=== PATIENT | male | born 1995 | race African-American/Black ===

== ENCOUNTER 2016-11-04 18:58 | Emergency (ER) | payer OTHER ==
[~2016-11-04] VITALS: Ht 177.8 cm; Wt 65.0 kg
[2016-11-04 19:02] VITALS: BP 121/52; PULSE 76; RESP 16; TEMP 100.9; O2SAT 98
[2016-11-04] MEDS ORDERED: ONDANSETRON ODT 4 MG TAB PO ONE (21:15)
[2016-11-04] MEDS ORDERED: IBUPROFEN 800 MG TAB PO ONE (21:15)
--- NOTE | 2016-11-04 21:18 | PD ---
HPI Chief Complaint: Cold / Flu Symptoms Time Seen by Provider: 21:15 Travel History International Travel<30 days: No Contact w/Intl Traveler<30days: No Traveled to known affect area: No History of Present Illness HPI Patient comes in complaining of flulike symptoms that began last night. Patient complaining of cough, fevers, nausea, congestion, body aches, feeling rundown, and chills. Patient denies taking anything for this. Denies being around anyone else with similar. Denies any vomiting, diarrhea, shortness of breath, abdominal pain, or headaches. Denies anything making it better or worse. PFSH Past Medical History Medical History: Denies Significant Hx Immunizations Current: Yes Tetanus Vaccination: Unknown Influenza Vaccination: No Social History Alcohol Use: Yes (socially) Tobacco Use: Yes Substance Use: No Allergies-Medications (Allergen,Severity, Reaction): Coded Allergies: No Known Allergies (Unverified , 11/04/16) Reported Meds & Prescriptions Reported Meds & Active Scripts Active Zofran Odt (Ondansetron Odt) 4 Mg Tab 4 Mg SL Q6HR PRN Tamiflu (Oseltamivir Phosphate) 75 Mg Cap 75 Mg PO BID 5 Days Review of Systems Except as stated in HPI: all other systems reviewed are Neg Physical Exam Narrative GENERAL: Well-developed, well nourished, in no acute distress, and non-ill appearing. SKIN: Warm and dry. HEAD: Atraumatic. Normocephalic. EYES: Pupils equal and round. EOMI. No scleral icterus. No injection or drainage. ENT: No nasal bleeding or discharge. Mucous membranes pink and moist. Tympanic membranes pearly dye bilaterally. Posterior Erythematous with Exudate. Uvula Is Midline. No Tenderness to Facial Sinuses to Palpation. NECK: Trachea midline. No JVD. Supple. No nuclear rigidity. CARDIOVASCULAR: Regular rate and rhythm. No murmur appreciated. RESPIRATORY: No accessory muscle use. No respiratory distress. Clear to auscultation. Breath sounds equal bilaterally. GASTROINTESTINAL: Abdomen soft, non-tender, nondistended. Hepatic and splenic margins not palpable. Normal bowel sounds 4. No pulsatile mass. MUSCULOSKELETAL: No obvious deformities. No clubbing. No cyanosis. No edema. Full range of motion. NEUROLOGICAL: Awake and alert. No obvious cranial nerve deficits. Motor grossly within normal limits. Normal speech. PSYCHIATRIC: Appropriate mood and affect; insight and judgment normal. Data Data Last Documented VS Vital Signs Date Time Temp Pulse Resp B/P Pulse Ox O2 Delivery O2 Flow Rate FiO2 11/04/16 19:02 100.9 76 16 121/52 98 Room Air Orders Ondansetron Odt (Zofran Odt) (11/04/16 21:15) Ibuprofen (Motrin) (11/04/16 21:15) MDM Medical Decision Making Medical Screen Exam Complete: Yes Emergency Medical Condition: Yes Differential Diagnosis Influenza, viral syndrome, upper respiratory infection, other Narrative Course Patient looks great. Patients symptom complex is consistent with Influenza, or flu-like illness. The patient is tolerating fluids and is well hydrated. There is no evidence to suggest secondary infection (pneumonia, sepsis/bacteremia, etc.) at this time. I discussed with the patient, diagnosis, and plan of care and to follow up with the patients primary physician. I discussed with the patient regarding testing, even if rapid influenza negative, I would suspect false negative. I discussed with the patient initiating Tamiflu and the patient agreed with plan. The patient was instructed to return if the worsens in anyway , especially if not tolerating fluids, increased pain or swelling, difficulty swallowing or breathing, or as needed. The patient agreed with plan. Patient in no obvious distress upon re-evaluation. Patient was asked if they wanted to speak to my attending, which the patient did not wish to do at this time. Any questions/concerns in reference to patient diagnosis/condition discussed and clarified prior to patient's discharge. Reinforced sheer importance of close follow up with patient's primary physician or primary care clinic. Instructed patient to return to ED immediately, if symptoms return/ worsen. Pt showed understanding of above instructions. Further instructions and recommendations were detailed in discharge paperwork. Pt ambulated without difficulty out of ED at discharge. Diagnosis Primary Impression: Influenza Patient Instructions: General Instructions, Influenza (DC) Additional Instructions: Follow-up with your primary care physician in 3-5 days for reevaluation. Take all medication as prescribed. Use [id number] Tylenol and/or ibuprofen as needed for pain and/or fevers. Follow instructions on the packaging. Drink plenty of non-caffeinated and nonalcoholic fluids. Return to the emergency department if symptoms get worse. Med/Other Pt SpecificInfo: Prescription(s) given Scripts Ondansetron Odt (Zofran Odt)4 Mg Tab4 Mg SL Q6HR PRN (Nausea/Vomiting) #12 TAB Ref 0 Prov:Marya Villagomez MD 11/04/16 Oseltamivir (Tamiflu)75 Mg Cap75 Mg PO BID 5 Days Ref 0 Prov:Marya Villagomez MD 11/04/16 Disposition: 01 DISCHARGE HOME Condition: Stable Steven Henderson Nov 04, 2016 21:18
[2016-11-04] MEDS ORDERED: ZOFR4TAB3 SL (21:23)
[2016-11-04] MEDS ORDERED: OSEL75 PO (21:23)
== END 2016-11-04 21:37 | disposition home or self-care (01) ==
LOC: NEPB 18:58
DX: J11.1 Influenza due to unidentified influenza virus with other respiratory manifestations (principal); R50.9 Fever, unspecified; Z72.0 Tobacco use
CPT/HCPCS: 99283

== ENCOUNTER 2016-11-22 09:53 | Inpatient (IN) | payer OTHER ==
[~2016-11-22] VITALS: Ht 175.3 cm; Wt 90.0 kg
[2016-11-22] VITALS (7 sets, daily range): BP systolic 106–124; BP diastolic 60–75; PULSE 45–86; RESP 14–20; TEMP 97–97.8; O2SAT 96–99
[~2016-11-22 09:53] MED LIST: OSEL75 PO; ZOFR4TAB3 SL
[2016-11-22] MEDS ORDERED: SODIUM CHLOR 0.9% 1000 ML INJ 1,000 ML IV SCH (11:07)
[2016-11-22] MEDS ORDERED: LORazepam 2 MG/ML VIAL IM ONE (11:15)
[2016-11-22] MEDS ORDERED: HALOPERIDOL LACTATE 5 MG/ML AMP IM ONE (11:15)
[2016-11-22] MEDS ORDERED: diphenhydrAMINE HCL 50 MG/ML VIAL IV PUSH ONE (11:15)
[2016-11-22] MEDS ORDERED: SODIUM CHLORIDE 0.9% FLUSH 10 ML FLUSH IVF PRN (11:15)
--- NOTE | 2016-11-22 11:17 | PD ---
HPI Chief Complaint: Altered Mental Status Time Seen by Provider: 10:53 Travel History International Travel<30 days: No Contact w/Intl Traveler<30days: No Traveled to known affect area: No History of Present Illness HPI The patient is a 21-year-old [place] male who presents emergency department with friends and family for altered mental status. Patient apparently went to a libertarian on Friday night and after he returned home he started having an altered mental status and acting in bizarre fashion. A family member states she flew down from [place], states that the current behavior is not normal for the patient. The patient's friend also states that he has had altered mental status, appears to be having contractions and will flex his elbows bilaterally and looked to the left and right in bizarre fashion. The patient has no prior history of illicit drug use according to family or friends , are unsure if he ingested any medications Friday night. They do state the patient stated he might of smoke something, but they are unsure of any ingestion or inhalation of unknown medications. The patient has no previous history of schizophrenia, encephalitis, or meningitis. However, the patient did recently have influenza and was prescribed Tamiflu, which she finished one week ago. Family members state the patient has had Tamiflu in the past without any adverse reactions. The patient is unsure if he has had any fevers, refuses to answer questions or allow me to perform a physical examination. [facility] Past Medical History Medical History: Denies Significant Hx Immunizations Current: Yes Past Surgical History Surgical History: No Previous Surgery Social History Alcohol Use: Yes (socially) Tobacco Use: Yes Substance Use: No Allergies-Medications (Allergen,Severity, Reaction): Coded Allergies: No Known Allergies (Unverified , 11/04/16) Reported Meds & Prescriptions Reported Meds & Active Scripts Active No Active Prescriptions or Reported Medications Review of Systems ROS Limitations: Altered Mental Status, Poor Historian Except as stated in HPI: all other systems reviewed are Neg Neurologic: Positive: Change in Mentation Physical Exam Exam Limitations: Clinical Condition, Altered Mental Status, Refused Narrative GENERAL: Patient was examined post-sedation. Patient responds to voice command and painful stimulant. SKIN: Focused skin assessment warm/dry. HEAD: Atraumatic. Normocephalic. EYES: Pupils equal and round. Pupils are 4 mm bilateral and reactive. ENT: No nasal bleeding or discharge. Mucous membranes pink and moist. NECK: Trachea midline. No JVD. No meningeal signs. CARDIOVASCULAR: Regular rate and rhythm. No murmur appreciated. RESPIRATORY: No accessory muscle use. Clear to auscultation. Breath sounds equal bilaterally. GASTROINTESTINAL: Abdomen soft, non-tender, nondistended. No rebound tenderness. MUSCULOSKELETAL: No obvious deformities. No clubbing. No cyanosis. No edema. NEUROLOGICAL: Sedated from medication. No obvious cranial nerve deficits. Moves all 4 extremities. PSYCHIATRIC: Appears psychotic. Data Data Last Documented VS Vital Signs Date Time Temp Pulse Resp B/P Pulse Ox O2 Delivery O2 Flow Rate FiO2 11/22/16 13:13 54 14 119/65 98 Room Air 11/22/16 09:55 97.8 Orders Electrocardiogram (11/22/16 11:07) Complete Blood Count With Diff (11/22/16 11:07) Comprehensive Metabolic Panel (11/22/16 11:07) Creatine Kinase (Cpk) (11/22/16 11:07) Prothrombin Time / Inr (Pt) (11/22/16 11:07) Act Partial Throm Time (Ptt) (11/22/16 11:07) Thyroid Stimulating Hormone (11/22/16 11:07) Urinalysis - C+S If Indicated (11/22/16 11:07) Chest, Single Ap (11/22/16 11:07) Ct Brain W/O Iv Contrast(Rout) (11/22/16 11:07) Blood Glucose (11/22/16 11:07) Ecg Monitoring (11/22/16 11:07) Iv Access Insert/Monitor (11/22/16 11:07) Oximetry (11/22/16 11:07) Sodium Chloride 0.9% Flush (Ns Flush) (11/22/16 11:15) Sodium Chlor 0.9% 1000 Ml Inj (Ns 1000 M (11/22/16 11:07) Drug Screen, Random Urine (11/22/16 11:07) Alcohol (Ethanol) (11/22/16 11:07) Lorazepam Inj (Ativan Inj) (11/22/16 11:15) Haloperidol Inj (Haldol Inj) (11/22/16 11:15) Diphenhydramine Inj (Benadryl Inj) (11/22/16 11:15) Bacterial Antigen Csf (11/22/16 11:09) Csf Hsv I/Ii Dna,Pcr (11/22/16 11:09) Csf Cell Count + Differential (11/22/16 11:09) Glucose, Csf (11/22/16 11:09) Total Protein, Csf (11/22/16 11:09) Csf Culture And Gram Stain (11/22/16 11:09) Blood Culture (11/22/16 11:09) Labs Laboratory Tests Test 11/22/16 11/22/16 11:59 13:00 White Blood Count 6.4 TH/MM3 Red Blood Count 4.71 MIL/MM3 Hemoglobin 13.4 GM/DL Hematocrit 39.7 % Mean Corpuscular Volume 84.3 FL Mean Corpuscular Hemoglobin 28.5 PG Mean Corpuscular Hemoglobin 33.8 % Concent Red Cell Distribution Width 13.4 % Platelet Count 242 TH/MM3 Mean Platelet Volume 7.4 FL Neutrophils (%) (Auto) 70.6 % Lymphocytes (%) (Auto) 20.7 % Monocytes (%) (Auto) 6.7 % Eosinophils (%) (Auto) 1.6 % Basophils (%) (Auto) 0.4 % Neutrophils # (Auto) 4.5 TH/MM3 Lymphocytes # (Auto) 1.3 TH/MM3 Monocytes # (Auto) 0.4 TH/MM3 Eosinophils # (Auto) 0.1 TH/MM3 Basophils # (Auto) 0.0 TH/MM3 CBC Comment DIFF FINAL Differential Comment Prothrombin Time 13.1 SEC Prothromb Time International 1.2 RATIO Ratio Activated Partial 29.5 SEC Thromboplast Time Sodium Level 141 MEQ/L Potassium Level 3.6 MEQ/L Chloride Level 104 MEQ/L Carbon Dioxide Level 27.4 MEQ/L Anion Gap 10 MEQ/L Blood Urea Nitrogen 22 MG/DL Creatinine 1.19 MG/DL Estimat Glomerular Filtration 94 ML/MIN Rate Random Glucose 88 MG/DL Calcium Level 9.1 MG/DL Total Bilirubin 3.0 MG/DL Aspartate Amino Transf 12 U/L (AST/SGOT) Alanine Aminotransferase 17 U/L (ALT/SGPT) Alkaline Phosphatase 52 U/L Total Creatine Kinase 303 U/L Total Protein 7.5 GM/DL Albumin 4.2 GM/DL Thyroid Stimulating Hormone 0.323 uIU/ML 3rd Gen Ethyl Alcohol Level LESS THAN 3 MG/DL Urine Opiates Screen NEG Urine Barbiturates Screen NEG Urine Amphetamines Screen NEG Urine Benzodiazepines Screen NEG Urine Cocaine Screen NEG Urine Cannabinoids Screen POS MDM Medical Decision Making Medical Screen Exam Complete: Yes Emergency Medical Condition: Yes Medical Record Reviewed: Yes Interpretation(s) Last Impressions Head CT 11/22/16 1107 Signed Impressions: Service Date/Time: Tuesday, November 22, 2016 12:01 - CONCLUSION: Normal examination. Roger Edwards MD Chest X-Ray 11/22/16 1107 Signed Impressions: Service Date/Time: Tuesday, November 22, 2016 11:35 - CONCLUSION: No acute cardiopulmonary abnormality is identified. Feng Lang MD Laboratory Tests Test 11/22/16 11:59 White Blood Count 6.4 TH/MM3 Red Blood Count 4.71 MIL/MM3 Hemoglobin 13.4 GM/DL Hematocrit 39.7 % Mean Corpuscular Volume 84.3 FL Mean Corpuscular Hemoglobin 28.5 PG Mean Corpuscular Hemoglobin 33.8 % Concent Red Cell Distribution Width 13.4 % Platelet Count 242 TH/MM3 Mean Platelet Volume 7.4 FL Neutrophils (%) (Auto) 70.6 % Lymphocytes (%) (Auto) 20.7 % Monocytes (%) (Auto) 6.7 % Eosinophils (%) (Auto) 1.6 % Basophils (%) (Auto) 0.4 % Neutrophils # (Auto) 4.5 TH/MM3 Lymphocytes # (Auto) 1.3 TH/MM3 Monocytes # (Auto) 0.4 TH/MM3 Eosinophils # (Auto) 0.1 TH/MM3 Basophils # (Auto) 0.0 TH/MM3 CBC Comment DIFF FINAL Differential Comment Prothrombin Time 13.1 SEC Prothromb Time International 1.2 RATIO Ratio Activated Partial 29.5 SEC Thromboplast Time Sodium Level 141 MEQ/L Potassium Level 3.6 MEQ/L Chloride Level 104 MEQ/L Carbon Dioxide Level 27.4 MEQ/L Anion Gap 10 MEQ/L Blood Urea Nitrogen 22 MG/DL Creatinine 1.19 MG/DL Estimat Glomerular Filtration 94 ML/MIN Rate Random Glucose 88 MG/DL Calcium Level 9.1 MG/DL Total Bilirubin 3.0 MG/DL Aspartate Amino Transf 12 U/L (AST/SGOT) Alanine Aminotransferase 17 U/L (ALT/SGPT) Alkaline Phosphatase 52 U/L Total Creatine Kinase 303 U/L Total Protein 7.5 GM/DL Albumin 4.2 GM/DL Thyroid Stimulating Hormone 0.323 uIU/ML 3rd Gen Ethyl Alcohol Level LESS THAN 3 MG/DL Differential Diagnosis Differential diagnoses includes encephalitis, meningitis, drug ingestion, electrolyte abnormality, acute psychosis, schizophrenia, rhabdomyolysis, serotonin syndrome, neuroleptic malignant syndrome, frontal lobe tumor. Narrative Course The patient refused physical examination, however, was unable to answer questions in regards to place, month, or year. The patient is not able to sign out against medical field representative, I do not believe the patient can refuse medical care as he is currently altered. I had a discussion with the family member and friend at bedside who agreed the patient should have further evaluation. Therefore, patient was administered Haldol, Benadryl, and Ativan IM for sedation to allow physical examination and probable CT of the brain and lumbar puncture. The patient's white count was normal. The patient was afebrile. CT of the brain is negative. Metabolic workup is unremarkable. The patient is reevaluated after sedation, he is nonfocal on exam, there are no meningeal signs , this may be secondary to drug ingestion versus metabolic/infectious encephalopathy versus new onset schizophrenia. The mother apparently had questions about consenting for possible lumbar puncture, therefore, lumbar puncture was held initially. The on-call medical team was paged for admission. The residents were capped, therefore, [facility] were paged for admission. I did have a discussion with the family members once again, the patient did smoke marijuana Friday night, normally does not smoke marijuana. They're unsure of the marijuana was laced with any other medicines. Differential includes encephalopathy, drug ingestion, and medication side effect from Tamiflu. I also had a discussion with the mother who is at bedside, after discussion of lumbar puncture, she does not want one performed immediately. I think this may be acceptable, patient has no white count or fever, however, we' ll be unable to rule out encephalitis without lumbar puncture. The patient will be 23 hour observation to evaluate any clearing of his mental status, if it is not clear, he will need neurology evaluation. Physician Communication Physician Communication The on-call medical team was paged for 23 hour observation. Diagnosis Primary Impression: Altered mental status Qualified Code: R41.82 - Altered mental status, unspecified altered mental status type Admitting Information Admitting Physician Requests: Observation Scripts No Active Prescriptions or Reported Meds Condition: Stable Sarthak Wheat MD Nov 22, 2016 11:17
--- NOTE | 2016-11-22 12:09 | RADRPT ---
EXAM DATE/TIME: 11/22/2016 11:35 [facility] COMPARISON: No previous studies available for comparison. INDICATIONS : Syncope. MEDICAL HISTORY : None. SURGICAL HISTORY : None. ENCOUNTER: Initial ACUITY: 2 days PAIN SCORE: Non-responsive. LOCATION: Bilateral chest FINDINGS: Portable AP view of the chest demonstrates a normal-sized cardiac silhouette. No effusion, consolidat ion, or pneumothorax is visualized. The bones and soft tissues demonstrate no acute abnormality. CONCLUSION: No acute cardiopulmonary abnormality is identified. Feng Lang MD on November 22, 2016 at 12:04 Board Certified Radiologist. This report was verified electronically.
[2016-11-22 12:18] LABS: AUTOMATED NEUTROPHIL # 4.5 TH/MM3 (1.8-7.7); BASOPHIL % 0.4 % (0.0-2.0); EOSINOPHIL # 0.1 TH/MM3 (0-0.4); EOSINOPHIL % 1.6 % (0.0-4.0); HEMATOCRIT 39.7 % (39.0-51.0); HEMO FLAGS DIFF FINAL; LYMPH % 20.7 % (9.0-44.0); LYMPHOCYTE # 1.3 TH/MM3 (1.0-4.8); MEAN CELL VOLUME 84.3 FL (80.0-100.0); MEAN CORPUSCULAR HEMOGLOBIN 28.5 PG (27.0-34.0); MEAN CORPUSCULAR HGB CONC 33.8 % (32.0-36.0); MONO % 6.7 % (0.0-8.0); NEUT % 70.6 % (16.0-70.0); PLATELET COUNT 242 TH/MM3 (150-450); RED BLOOD COUNT 4.71 MIL/MM3 (4.50-5.90); RED CELL DISTRIBUTION WIDTH 13.4 % (11.6-17.2); WHITE BLOOD COUNT 6.4 TH/MM3 (4.0-11.0)
[2016-11-22 12:28] LABS: APTT (PATIENT) 29.5 SEC (24.3-30.1); INTERNATIONAL NORMALIZED RATIO 1.2 RATIO; PROTHROMBIN TIME - PATIENT 13.1 SEC (9.8-11.6)
[2016-11-22 12:31] LABS: ANION GAP 10 MEQ/L (5-15); AST (GOT) 12 U/L (15-39); BICARBONATE 27.4 MEQ/L (21.0-32.0); BLOOD UREA NITROGEN 22 MG/DL (7-18); CHLORIDE 104 MEQ/L (98-107); GLOMERULAR FILTRATION RATE 94 ML/MIN (>89); POTASSIUM 3.6 MEQ/L (3.5-5.1); SODIUM (NA) 141 MEQ/L (136-145)
[2016-11-22 12:42] LABS: ALKALINE PHOSPHATASE 52 U/L (45-117); ALT (GPT) 17 U/L (9-52); CREATINE KINASE 303 U/L (39-308)
--- NOTE | 2016-11-22 12:47 | RADRPT ---
EXAM DATE/TIME: 11/22/2016 12:01 [facility] COMPARISON: No previous studies available for comparison. INDICATIONS : Altered mental status. RADIATION DOSE: 37.99 CTDIvol (mGy) MEDICAL HISTORY : None SURGICAL HISTORY : None. ENCOUNTER: Initial ACUITY: 1 day PAIN SCALE: 0/10 LOCATION: cranial TECHNIQUE: Multiple contiguous axial images were obtained of the head. Using automated exposure control and adj ustment of the mA and/or kV according to patient size, radiation dose was kept as low as reasonably a chievable to obtain optimal diagnostic quality images. FINDINGS: CEREBRUM: The ventricles are normal for age. No evidence of midline shift, mass lesion, hemorrhage or acute in farction. No extra-axial fluid collections are seen. POSTERIOR FOSSA: The cerebellum and brainstem are intact. The 4th ventricle is midline. The cerebellopontine angle i s unremarkable. EXTRACRANIAL: The visualized portion of the orbits is intact. SKULL: The calvaria is intact. No evidence of skull fracture. CONCLUSION: Normal examination. Roger Edwards MD on November 22, 2016 at 12:45 Board Certified Radiologist. This report was verified electronically.
[2016-11-22 13:34] LABS: AMPHETAMINE, URINE NEG (NEG); BARBITURATES, URINE NEG (NEG); COCAINE, URINE NEG (NEG)
--- NOTE | 2016-11-22 15:28 | HHI.HP ---
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 Patient was brought in by grandmother r who came down from [place] because patient apparently called him on the phone rambling and talking - apologetic about using a "joint". Patient doesn't sound right to the mom and she came down immediately and brought him in here. No fever or chills reported but admits to history of cough and cold 2 weeks ago and was prescribed Tamiflu per Mom. . On exam now patient is more awake, stated his name and year and knows where he is at. But still not baseline. He will answer and open his eyes briefly and turn to other side and cover himself with the sheet/ blanket. Denies any nausea or vomiting headaches diarrhea or urinary symptoms. No seizure like activity noted. Patient admitted for further evaluation. Mother and brother is not aware of any recent problems with school or any form of stress. Review of Systems Constitutional: DENIES: Fever, Weight loss, Chills, Change in appetite Eyes: DENIES: Blurred vision, Double Vision Ears, nose, mouth, throat: DENIES: Tinnitus, Ear Pain, Epistaxis, Odynophagia Respiratory: DENIES: Cough, Hemoptysis, Sputum production, Shortness of breath Cardiovascular: DENIES: Chest pain, Palpitations, Dyspnea on Exertion, Lower Extremity Edema, Orthopnea Gastrointestinal: DENIES: Black stools, Bloody stools, Difficulty Swallowing, Anorexia Genitourinary: DENIES: Urgency, Hematuria, Penile Discharge Musculoskeletal: DENIES: Joint pain, Stiffness Integumentary: DENIES: Pruritus Hematologic/lymphatic: DENIES: Bruising Immunologic/allergic: DENIES: Urticaria Neurologic: DENIES: Headache, Speech Problems, Tremor Psychiatric: DENIES: Suicidal Ideation, Homicidal Ideation Past Family Social History Past Surgical History None Reported Medications Tamiflu to about 2 weeks ago Allergies: Coded Allergies: No Known Allergies (Unverified , 11/04/16) Family History Positive for hypertension Positive for ovarian cancer and breast cancer Social History No history of smoking alcohol or chronic substance abuse. Admitted to smoking a joint at a libertarian Friday night Physical Exam Vital Signs Vital Signs Date Time Temp Pulse Resp B/P Pulse Ox O2 Delivery O2 Flow Rate FiO2 11/22/16 14:42 52 16 119/65 98 11/22/16 13:13 54 14 119/65 98 Room Air 11/22/16 12:06 52 16 11/22/16 10:51 86 20 121/63 99 11/22/16 09:55 97.8 67 20 123/60 96 Room Air Physical Exam GENERAL:well-developed patient, in no apparent distress. SKIN: No rashes, ecchymoses or lesions. Cool and dry. HEAD: Atraumatic. Normocephalic. No temporal or scalp tenderness. EYES: Pupils equal round and reactive. Extraocular motions intact. No scleral icterus. No injection or drainage. ENT: Nose without bleeding, purulent drainage or septal hematoma. Throat without erythema, tonsillar hypertrophy or exudate.. Airway patent. NECK: Trachea midline. No JVD or lymphadenopathy. Supple, nontender, no meningeal signs. No nuchal rigidity T CARDIOVASCULAR: Regular rate and rhythm without murmurs, gallops, or rubs. RESPIRATORY: Clear to auscultation. Breath sounds equal bilaterally. No wheezes , rales, or rhonchi. GASTROINTESTINAL: Abdomen soft, non-tender, nondistended. No hepato-splenomegaly , or palpable masses. No guarding. MUSCULOSKELETAL: Extremities without clubbing, cyanosis, or edema. No joint tenderness, effusion, or edema noted. No calf tenderness. Negative Homans sign bilaterally. NEUROLOGICAL: -Lethargic. On vigorous is awakening patient did state his name the year the month and the hospital. Followed simple commands Cranial nerves II through XII intact. Motor and sensory grossly within normal limits. Five out of 5 muscle strength in all muscle groups. Normal speech. Laboratory Laboratory Tests Test 11/22/16 11/22/16 11:59 13:00 White Blood Count 6.4 Red Blood Count 4.71 Hemoglobin 13.4 Hematocrit 39.7 Mean Corpuscular Volume 84.3 Mean Corpuscular Hemoglobin 28.5 Mean Corpuscular Hemoglobin 33.8 Concent Red Cell Distribution Width 13.4 Platelet Count 242 Mean Platelet Volume 7.4 Neutrophils (%) (Auto) 70.6 Lymphocytes (%) (Auto) 20.7 Monocytes (%) (Auto) 6.7 Eosinophils (%) (Auto) 1.6 Basophils (%) (Auto) 0.4 Neutrophils # (Auto) 4.5 Lymphocytes # (Auto) 1.3 Monocytes # (Auto) 0.4 Eosinophils # (Auto) 0.1 Basophils # (Auto) 0.0 CBC Comment DIFF FINAL Differential Comment Prothrombin Time 13.1 Prothromb Time International 1.2 Ratio Activated Partial 29.5 Thromboplast Time Sodium Level 141 Potassium Level 3.6 Chloride Level 104 Carbon Dioxide Level 27.4 Anion Gap 10 Blood Urea Nitrogen 22 Creatinine 1.19 Estimat Glomerular Filtration 94 Rate Random Glucose 88 Calcium Level 9.1 Total Bilirubin 3.0 Aspartate Amino Transf 12 (AST/SGOT) Alanine Aminotransferase 17 (ALT/SGPT) Alkaline Phosphatase 52 Total Creatine Kinase 303 Total Protein 7.5 Albumin 4.2 Thyroid Stimulating Hormone 0.323 3rd Gen Ethyl Alcohol Level LESS THAN 3 Urine Opiates Screen NEG Urine Barbiturates Screen NEG Urine Amphetamines Screen NEG Urine Benzodiazepines Screen NEG Urine Cocaine Screen NEG Urine Cannabinoids Screen POS Date/Time Procedure Status Source Growth 11/22/16 11:53 Aerobic Blood Culture Received Blood Peripheral Pending 11/22/16 11:53 Anaerobic Blood Culture Received Blood Peripheral Pending Result Diagram: 11/22/16 1159 11/22/16 1159 Imaging Last Impressions Head CT 11/22/16 1107 Signed Impressions: Service Date/Time: Tuesday, November 22, 2016 12:01 - CONCLUSION: Normal examination. Roger Edwards MD Chest X-Ray 11/22/16 1107 Signed Impressions: Service Date/Time: Tuesday, November 22, 2016 11:35 - CONCLUSION: No acute cardiopulmonary abnormality is identified. Feng Lang MD Assessment and Plan Assessment and Plan 21-year-old male presenting with Change in mental status possibly substance abuse related admitted to smoking a "joint marijuana" for the first time. Acute encephalopathy Head CT negative. No WBC elevation no nuchal rigidity Monitor mental status- neuro checks On current exam patient more responsive compared to initial evaluation. We' ll continue to monitor If no improvement get neurologic consult or psychiatric evaluation- consider further workup Acute Kidney injury start IVF, Recheck BMP in am Palak Archuleta MD Nov 22, 2016 15:28
[2016-11-22] MEDS: D5-NS + KCL 20 MEQ INJ 1,000 ML IV SCH (17:54)
[2016-11-23] VITALS (8 sets, daily range): BP systolic 110–129; BP diastolic 60–80; PULSE 54–98; RESP 16–18; TEMP 96.8–98.4; O2SAT 95–100
[2016-11-23] MEDS: D5-NS + KCL 20 MEQ INJ 1,000 ML IV SCH ×3 (03:02→21:07)
--- NOTE | 2016-11-23 09:02 | HHI.PR ---
Subjective Remarks patient more awake and alert- answering questions- speech very slow but speechclear"- some difficulty or hesitancy in expressive out words ff all commands denies any headache, neck pain on exam- with rigidity on exam of extremities, eyes blinking a lot, some neck rotation mvoements he now admits to smoking joint frequently and alcohol use- "Amanda" no incontinence- voiding well he denies taking any meds- prescription or OTC appears to be catatonic Objective Vitals Vital Signs Date Time Temp Pulse Resp B/P Pulse Ox O2 Delivery O2 Flow Rate FiO2 11/23/16 08:43 98.4 88 18 126/74 97 11/23/16 05:57 98.0 98 18 129/80 98 11/23/16 00:35 96.9 58 16 124/69 97 11/22/16 19:39 60 20 124/64 99 11/22/16 15:55 97.0 45 18 106/75 96 11/22/16 14:42 52 16 119/65 98 11/22/16 13:13 54 14 119/65 98 Room Air 11/22/16 12:06 52 16 11/22/16 10:51 86 20 121/63 99 11/22/16 09:55 97.8 67 20 123/60 96 Room Air I/O 11/22/16 11/22/16 11/22/16 11/23/16 11/23/16 11/23/16 07:00 15:00 23:00 07:00 15:00 23:00 Intake Total 240 ml 1100 ml Balance 240 ml 1100 ml Intake Oral 240 ml IV Total 1100 ml # Voids 1 Result Diagram: 11/22/16 1159 11/22/16 1159 Imaging Last Impressions Head CT 11/22/16 1107 Signed Impressions: Service Date/Time: Tuesday, November 22, 2016 12:01 - CONCLUSION: Normal examination. Roger Edwards MD Chest X-Ray 11/22/16 110 Signed Impressions: Service Date/Time: Tuesday, November 22, 2016 11:35 - CONCLUSION: No acute cardiopulmonary abnormality is identified. Feng Lang MD Objective Remarks more awake and alert, oriented x 3, speech hesitant but easily drifts off and closed his eyes- does not maintain eye contact, like in a catatonic state head bobbing noted sometimes, rotating his head, mild tremors of the lower extremities- eyes constantly blinking pupils equally reactive to light anicteric no facial symmetry, good gag reflex no nuchal rigidity lungs clear regular rhythm abdomen soft, nontender extremities no edema, rigid on exam- with resistance grossly no sensory deficits motor- strong with resistance- poor coordination gait - ataxic,unsteady- sways sideways- needs assistance, arms flays outward when stood up A/P Assessment and Plan 21-year-old male presenting with Change in mental status possibly substance abuse related admitted to smoking a "joint marijuana" - not for the first time - MS improved but still not fully coherent ? Catatonic state + Rigidity of Exam, head rotating, eyes blinking some expressive aphasia- difficulty expressing or getting out words Unstady gait- ataxic, poor coordination Possible Seizure r/o encephalitis plan for LP- mom wants to d/w neurologist first Mom asked and called his room mates- rare alcohol use Head CT negative. Get an MRI, EEG r/o Seizure Neurology consult- get PT to eval consider Psychiatry consult after neuro evaluation Acute Kidney injury continue IVF, BMP, CK today Palak Archuleta MD Nov 23, 2016 09:02
[2016-11-23 10:51] LABS: BLOOD, URINE SMALL (NEG); GLUCOSE,URINE NEG (NEG); KETONE, URINE NEG (NEG); MUCUS URINE FEW /lpf (OCC); NITRITE,URINE NEG (NEG); URINE COLOR YELLOW (YELLW/STRAW)
[2016-11-23 10:55] LABS: BACTERIA, URINE RARE /hpf; COMMENT (UR) CATH-CULTURE IND; CULTURE IF INDICATED CATH CULTURE IND
[2016-11-23 11:06] LABS: AUTOMATED NEUTROPHIL # 3.3 TH/MM3 (1.8-7.7); BASOPHIL % 0.6 % (0.0-2.0); EOSINOPHIL # 0.1 TH/MM3 (0-0.4); EOSINOPHIL % 2.5 % (0.0-4.0); HEMATOCRIT 41.8 % (39.0-51.0); HEMO FLAGS DIFF FINAL; LYMPH % 29.5 % (9.0-44.0); LYMPHOCYTE # 1.6 TH/MM3 (1.0-4.8); MEAN CELL VOLUME 85.4 FL (80.0-100.0); MEAN CORPUSCULAR HGB CONC 32.8 % (32.0-36.0); MONO % 6.5 % (0.0-8.0); NEUT % 60.9 % (16.0-70.0); PLATELET COUNT 221 TH/MM3 (150-450); RED BLOOD COUNT 4.89 MIL/MM3 (4.50-5.90); RED CELL DISTRIBUTION WIDTH 13.6 % (11.6-17.2); WHITE BLOOD COUNT 5.4 TH/MM3 (4.0-11.0)
[2016-11-23 11:23] LABS: POTASSIUM 3.6 MEQ/L (3.5-5.1)
--- NOTE | 2016-11-23 11:49 | PD.CONS ---
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 Patient was brought in by grandmother who came down from [place] because patient apparently called him on the phone confused. no fever, wbc count nml. uds + mj. seen in er 11/04 for flu like symptoms. apparently had tamiflu. grandmother, who is a Ph.D, has raised him. she wonders whether he had some type of synthetic drug. Denies any nausea or vomiting headaches diarrhea or urinary symptoms. No seizure like activity noted. Review of Systems as above and admit hp Past Family Social History Past Surgical History None Reported Medications Tamiflu to about 2 weeks ago Allergies: Coded Allergies: No Known Allergies (Unverified , 11/04/16) Family History Positive for hypertension Positive for ovarian cancer and breast cancer Social History No history of smoking alcohol or chronic substance abuse. Admitted to smoking a joint at a green party Friday night Review of Systems All other ROS: ROS reviewed as documented in chart Past Family Social History Allergies: Coded Allergies: No Known Allergies (Unverified , 11/04/16) Active Ordered Medications Current Medications Medications (Trade) Dose Ordered Sig/Lolita Route Start Time Stop Time Status Last Admin Sodium Chloride 2 ml 2 ml UNSCH PRN IVF 11/22/16 11:15 (D5-NS + KCl 20 Meq Inj) 1,000 ml @ 100 mls/hr Q10H IV 11/22/16 18:00 11/23/16 03:02 Exam I&O / VS 11/22/16 11/22/16 11/23/16 15:00 23:00 07:00 Intake Total 240 ml 1100 ml Balance 240 ml 1100 ml Intake Oral 240 ml IV Total 1100 ml # Voids 1 Vital Signs Date Time Temp Pulse Resp B/P Pulse Ox O2 Delivery O2 Flow Rate FiO2 11/23/16 08:43 98.4 88 18 126/74 97 11/23/16 05:57 98.0 98 18 129/80 98 11/23/16 00:35 96.9 58 16 124/69 97 11/22/16 19:39 60 20 124/64 99 11/22/16 15:55 97.0 45 18 106/75 96 11/22/16 14:42 52 16 119/65 98 11/22/16 13:13 54 14 119/65 98 Room Air 11/22/16 12:06 52 16 Exam Comments drowsy, easily awakens, ox 2-3. recognizes grandmother, follows, +shaan-facial dyskinetic movements, +nuchal rigidity, eomi with end-gaze nystagmus, difficult time keeping eyes open, ou 3mm sluggish, +increased tone/mild rigidity in ue, clarke to gravity, no clonus, planterflexor Review/Management Diagnosis/Plan: (1) Acute encephalopathy Plan: etiology: drug-induced vs beck operator encephalitis, recent URI vs reaction to tamiflu increased tone/rigidity suggestive of basal ganglia involvement; neuroleptic malignant syndrome possible but no fever and recs mri brain with contrast eeg csf iv ativan trial labs follow exam d/w pt/grandmother Henrique Chaves MD Nov 23, 2016 11:49
[2016-11-23 11:54] LABS: CKMB 2.8 NG/ML (0.5-3.6)
[2016-11-23] MEDS ORDERED: LORazepam 2 MG/ML VIAL IVS PRN (12:00)
[2016-11-23] MEDS ORDERED: LORazepam 2 MG/ML VIAL IV PUSH PRN (13:30)
[2016-11-23] MEDS ORDERED: GADODIAMIDE PF 287 MG/ML 5 ML VIAL (for RAD MRI) IV ONE (14:10)
--- NOTE | 2016-11-23 14:12 | EKG ---
Date Performed: 11/22/2016 Time Performed: 13:24:13 PTAGE: 21 years EKG: SINUS BRADYCARDIA EARLY REPOLARIZATION BORDERLINE ECG NO PREVIOUS TRACING DOCTOR: Dougie Ewing Interpretating Date/Time 11/23/2016 14:11:08
--- NOTE | 2016-11-23 14:36 | RADRPT ---
EXAM DATE/TIME: 11/23/2016 13:34 [facility] COMPARISON: MRI BRAIN W & W/O CONTRAST, November 23, 2016, 13:34. INDICATIONS : Meningitis. CONTRAST: 15 cc Omniscan (gadodiamide) IV MEDICAL HISTORY : None. SURGICAL HISTORY : None. ENCOUNTER: Initial ACUITY: 1 day PAIN SCORE: 0/10 LOCATION: Paraspinal TECHNIQUE: Multiplanar, multisequence MRI examination of the cervical spine was performed. FINDINGS: The marrow signal appears intact, and the spinal cord appears intact with technique. The postcontrast portion is unremarkable. C2-C3: No appreciable compromise to the thecal sac, exiting nerve roots are seen. The neural forami na are patent bilaterally. No appreciable thecal sac stenosis is seen. C3-C4: No appreciable compromise to the thecal sac, exiting nerve roots are seen. The neural forami na are patent bilaterally. No appreciable thecal sac stenosis is seen. C4-C5: No appreciable compromise to the thecal sac, exiting nerve roots are seen. The neural forami na are patent bilaterally. No appreciable thecal sac stenosis is seen. C5-C6: No appreciable compromise to the thecal sac, exiting nerve roots are seen. The neural foramin a are patent bilaterally. No appreciable thecal sac stenosis is seen. C6-C7: No appreciable compromise to the thecal sac, exiting nerve roots are seen. The neural foramin a are patent bilaterally. No appreciable thecal sac stenosis is seen. C7-T1: No appreciable compromise to the thecal sac, exiting nerve roots are seen. The neural foramin a are patent bilaterally. No appreciable thecal sac stenosis is seen. CONCLUSION: Unremarkable study. Mauro Matias MD on November 23, 2016 at 14:31 Board Certified Radiologist. This report was verified electronically.
--- NOTE | 2016-11-23 14:39 | RADRPT ---
EXAM DATE/TIME: 11/23/2016 13:34 [facility] COMPARISON: MRI CERVICAL SPINE W & W/O CONTRAST, November 23, 2016, 13:34. INDICATIONS : Altered mental status. Seizures. CONTRAST: 15 cc Omniscan (gadodiamide) IV MEDICAL HISTORY : None. SURGICAL HISTORY : None. ENCOUNTER: Initial ACUITY: 1 day PAIN SCORE: 0/10 LOCATION: cranial TECHNIQUE: Multiplanar, multisequence MRI of the brain was performed both prior to and following the administrat ion of paramagnetic contrast. FINDINGS: There is no evidence for intracranial hemorrhage, mass effect, mass lesions, edema, or extra-axial fl uid collections. The ventricles are normal size for the patient's age. There are no signs of acute infarction for technique. The diffusion portion, and postcontrast portion are unremarkable. CONCLUSION: Unremarkable study. Mauro Matias MD on November 23, 2016 at 14:35 Board Certified Radiologist. This report was verified electronically.
[2016-11-24 00:11] VITALS: BP 127/64; PULSE 52; RESP 18; TEMP 98; O2SAT 98
[2016-11-24 04:34] VITALS: BP 115/70; PULSE 72; RESP 20; TEMP 97.8; O2SAT 98
[2016-11-24] MEDS: D5-NS + KCL 20 MEQ INJ 1,000 ML IV SCH ×2 (05:37→13:37)
[2016-11-24 08:07] VITALS: BP 122/74; PULSE 55; RESP 18; TEMP 97.8; O2SAT 96
--- NOTE | 2016-11-24 08:07 | HHI.PR ---
Subjective Remarks patient is now verymuch awake and alert, speech spontaneous!!! grandma inside the the room- confirms that he is at baseline patient is amnesic of the events that brought him here and what occurred during this admission denies any headache, nausea or vomiting n muscle aches no gross hematuria Objective Vitals Vital Signs Date Time Temp Pulse Resp B/P Pulse Ox O2 Delivery O2 Flow Rate FiO2 11/24/16 04:34 97.8 72 20 115/70 98 11/24/16 00:11 98.0 52 18 127/64 98 11/23/16 21:37 54 11/23/16 20:01 97.5 72 18 126/80 98 11/23/16 17:59 56 11/23/16 16:11 96.8 67 18 110/60 100 11/23/16 12:19 98.4 69 18 125/73 95 11/23/16 08:43 98.4 88 18 126/74 97 I/O 11/23/16 11/23/16 11/23/16 11/24/16 11/24/16 11/24/16 07:00 15:00 23:00 07:00 15:00 23:00 Intake Total 1100 ml 2205 ml 1130 ml Output Total 1075 ml Balance 1100 ml 1130 ml 1130 ml Intake Oral 1080 ml 240 ml IV Total 1100 ml 1125 ml 890 ml Output Urine Total 1075 ml # Voids 3 2 # Bowel Movements 2 Result Diagram: 11/23/16 1015 11/23/16 1015 Imaging Last Impressions Cervical Spine MRI 11/23/16 0000 Signed Impressions: Service Date/Time: Wednesday, November 23, 2016 13:34 - CONCLUSION: Unremarkable study. Mauro Matias MD Brain MRI 11/23/16 0000 Signed Impressions: Service Date/Time: Wednesday, November 23, 2016 13:34 - CONCLUSION: Unremarkable study. Mauro Matias MD Head CT 11/22/16 1107 Signed Impressions: Service Date/Time: Tuesday, November 22, 2016 12:01 - CONCLUSION: Normal examination. Roger Edwards MD Chest X-Ray 11/22/16 1107 Signed Impressions: Service Date/Time: Tuesday, November 22, 2016 11:35 - CONCLUSION: No acute cardiopulmonary abnormality is identified. Feng Lang MD Objective Remarks awake and alert, oriented x 3, speech spontaneous maintains good eye contact pupils equally reactive to light anicteric no facial symmetry, good gag reflex no nuchal rigidity lungs clear regular rhythm abdomen soft, nontender extremities no edema grossly no sensory deficits motor- 5/5 on all extremities gait - steady, no ataxia A/P Assessment and Plan 21-year-old male presenting with Change in mental status - Improved speech spontaneous, neuro exam- improved, no ataxia Possible Seizure EEG- pending, LP done- pending head CT, MRI unremarkable Acute Kidney injury- improved continue IVF, BMP, CK today Microscopic hematuria repeat UA negative 6 pm cleared for DC diet regular activity as tolerated- avoid driving PCP ff up in 1 week ff up with Neurology in 3 weeks No illicit drug use Home with family Palak Archuleta MD Nov 24, 2016 08:07
[2016-11-24 11:16] LABS: ALKALINE PHOSPHATASE 52 U/L (45-117); ALT (GPT) 18 U/L (9-52); ANION GAP 6 MEQ/L (5-15); AST (GOT) 15 U/L (15-39); BICARBONATE 27.3 MEQ/L (21.0-32.0); BLOOD UREA NITROGEN 11 MG/DL (7-18); CHLORIDE 107 MEQ/L (98-107); CREATINE KINASE 394 U/L (39-308); GLOMERULAR FILTRATION RATE 100 ML/MIN (>89); POTASSIUM 3.8 MEQ/L (3.5-5.1); SODIUM (NA) 140 MEQ/L (136-145); TOTAL BILIRUBIN ADULT 1.7 MG/DL (0.2-1.0)
[2016-11-24 11:21] VITALS: PULSE 67
--- NOTE | 2016-11-24 11:37 | OTSOAPIP ---
TIME SESSION COMPLETED: 9 AM TREATMENT TIME: 5 MINS. CHART REVIEWED. S: PAIN: NO PAIN O: SPOKE WITH PATIENT AND GRAND MOTHER. NO FUNCTIONAL DEFICITS NOTED WITH PHYSICAL THERAPY. NO ADDITIONAL INDICATION FOR OCCUPATIONAL THERAPY. INTACT MOTOR CONTROL AND COGNITION. A: PATIENT RESPONSE TO TREATMENT:NO OT INDICATED P: D/C _X_ PT WAS INSTRUCTED TO NOT GET OUT OF BED OR CHAIR WITHOUT ASSISTANCE. CALL [facility] WAS LEFT WITHIN REACH. Therapist: Julia Burgos OTR/L Signature on file
[2016-11-24 11:47] VITALS: BP 121/61; PULSE 66; RESP 18; TEMP 98.7; O2SAT 95
[2016-11-24 11:54] LABS: CKMB 1.7 NG/ML (0.5-3.6)
--- NOTE | 2016-11-24 12:24 | HHI.PR ---
Review/Management Diagnosis/Plan: (1) Acute encephalopathy Plan: etiology: drug-induced vs television camera operator encephalitis, recent URI vs reaction to tamiflu increased tone/rigidity suggestive of basal ganglia involvement; neuroleptic malignant syndrome possible but no fever and mri brain- nml eeg-pending no fever recs neuro improved; non-focal exam ok to d/c from neuro if eeg nml f/u his pcp has a very supportive grandmother stop illicit drug use Subjective Subjective Comments No acute events reported No headache No chest pain No dyspnea wants to go home Active Medications Current Medications Medications (Trade) Dose Ordered Sig/Lolita Route Start Time Stop Time Status Last Admin Sodium Chloride 2 ml 2 ml UNSCH PRN IVF 11/22/16 11:15 (D5-NS + KCl 20 Meq Inj) 1,000 ml @ 125 mls/hr Q8H IV 11/22/16 18:00 11/23/16 21:07 Allergies Allergies Coded Allergies No Known Allergies (Unverified11/04/16) Review of Systems All other ROS: ROS reviewed as documented in chart Exam I&O / VS 11/23/16 11/23/16 11/24/16 15:00 23:00 07:00 Intake Total 2205 ml 1130 ml Output Total 1075 ml Balance 1130 ml 1130 ml Intake Oral 1080 ml 240 ml IV Total 1125 ml 890 ml Output Urine Total 1075 ml # Voids 3 2 # Bowel Movements 2 Vital Signs Date Time Temp Pulse Resp B/P Pulse Ox O2 Delivery O2 Flow Rate FiO2 11/24/16 11:47 98.7 66 18 121/61 95 11/24/16 11:21 67 11/24/16 08:07 97.8 55 18 122/74 96 11/24/16 04:34 97.8 72 20 115/70 98 11/24/16 00:11 98.0 52 18 127/64 98 11/23/16 21:37 54 11/23/16 20:01 97.5 72 18 126/80 98 11/23/16 17:59 56 11/23/16 16:11 96.8 67 18 110/60 100 Neurologic: Alert, Oriented, Normal sensory, Normal motor, No focal defects, Normal DTR's Psychiatric: Cooperative, Appropriate mood & affect Exam Comments has a lot of questions that we answered. looks well has been ambulating halls. no longer with any rigidity Objective Micro and Labs Laboratory Tests Test 11/23/16 11/24/16 13:00 10:00 Ammonia 29 C-Reactive Protein LESS THAN 0.29 Vitamin B12 Level 1300 Thyroid Stimulating Hormone 0.481 3rd Gen Sodium Level 140 Potassium Level 3.8 Chloride Level 107 Carbon Dioxide Level 27.3 Anion Gap 6 Blood Urea Nitrogen 11 Creatinine 1.13 Estimat Glomerular Filtration 100 Rate Random Glucose 89 Calcium Level 9.3 Total Bilirubin 1.7 Aspartate Amino Transf 15 (AST/SGOT) Alanine Aminotransferase 18 (ALT/SGPT) Alkaline Phosphatase 52 Total Creatine Kinase 394 Creatine Kinase MB 1.7 Creatine Kinase MB % 0.4 Total Protein 7.8 Albumin 4.1 Date/Time Procedure Status Source Growth 11/23/16 09:20 Urine Culture Received Urine Catheterized Urine Pending 11/22/16 11:53 Aerobic Blood Culture - Preliminary Resulted Blood Peripheral NO GROWTH IN 2 DAYS 11/22/16 11:53 Anaerobic Blood Culture - Preliminary Resulted Blood Peripheral NO GROWTH IN 2 DAYS Henrique Chaves MD Nov 24, 2016 12:24
[2016-11-24 13:52] LABS: BLOOD, URINE NEG (NEG); GLUCOSE,URINE NEG (NEG); KETONE, URINE NEG (NEG); NITRITE,URINE NEG (NEG); URINE COLOR LIGHT-YELLOW (YELLW/STRAW)
[2016-11-24 13:53] LABS: COMMENT (UR) CULT NOT INDICATED; CULTURE IF INDICATED CULT NOT INDICATED
--- NOTE | 2016-11-24 18:17 | MG ---
cc: WALLY STONER MD Lab No: [id number] Date: 11/24/2016 Age: 21 Sex: M Race: DATE OF : 1995 HISTORY: 21-year-old history of mental status changes. Urine drug screen positive for marijuana. DESCRIPTION: Posterior rhythm demonstrates well-formed alpha activity 20-50 microvolts low amplitude in the frontal channels, good anterior-posterior gradient, attenuation slowing of background with transition into drowsy state. Vertex waves and spindles suggestive of stage I to stage II sleep. Good EEG variability reactivity. Minimal driving with photic stimulation. Single lead EKG showing sinus rhythm. INTERPRETATION: Normal awake sleep EEG. Clinical correlation. Wally Stoner MD /JCC /5:19 PM /6:13 PM
[2016-11-25 17:29] LABS: ANA SCREEN NEG (NEG)
== END 2016-11-24 20:08 | disposition home or self-care (01) | DRG 948 ==
LOC: NEPE 09:53 → NEDA 13:49 → NEPFCDU 15:44 → OBSVTOIN 11-24 09:09
PROVIDERS: ADMIT Internal Medicine; ATTEND Internal Medicine
DX: R41.82 Altered mental status, unspecified (principal); N17.9 Acute kidney failure, unspecified; F12.90 Cannabis use, unspecified, uncomplicated; R31.29 Other microscopic hematuria; R27.0 Ataxia, unspecified
CPT/HCPCS: 70450; 70553; 71010; 72156; 80048; 80053; 80307; 81001; 82140; 82550; 82552; 82607; 84443; 85025; 85610; 85652; 85730; 86038; 86140; 86592; 86703; 87040; 87086; 93005; 95819; 96372; 96374; A9579; G0378; G8987-GP; G8988-GP; J1200; J1630; J2060; J3480; J7030

== ENCOUNTER 2016-12-13 21:39 | Emergency (ER) | payer OTHER ==
[~2016-12-13] VITALS: Ht 180.3 cm; Wt 60.0 kg
[2016-12-13 21:56] VITALS: BP 117/75; PULSE 76; RESP 14; TEMP 98.4; O2SAT 98
--- NOTE | 2016-12-13 22:09 | PD ---
HPI Chief Complaint: Psychiatric Symptoms Time Seen by Provider: 21:47 Travel History International Travel<30 days: No Contact w/Intl Traveler<30days: No Traveled to known affect area: No History of Present Illness HPI 21-year-old male arrives to the ER due to bizarre behavior. He was found in an auditorium at [facility] where he reported to security he could "see the light." he denies si/hi. he denies hx psychiatric disease. hx + cannabinoids previously on record with brain MRI negative associated with admission for similar complaint. location neuropsychiatric. severity moderate. pt was evidently missing for about 3 hours tonight. his associate director qa reports a similar event occurred a few weeks ago. pt has no similar prior episodes. PFSH Past Medical History Asthma: No Heart Rhythm Problems: No Cancer: No Cardiovascular Problems: No High Cholesterol: No Chest Pain: No Congestive Heart Failure: No COPD: No Diabetes: No Endocrine: No Genitourinary: No Immune Disorder: No Musculoskeletal: No Neurologic: No Psychiatric: No Reproductive: No Respiratory: No Immunizations Current: Yes Sleep Apnea: No Thyroid Disease: No Social History Alcohol Use: Yes (socially) Tobacco Use: No Substance Use: No Allergies-Medications (Allergen,Severity, Reaction): Coded Allergies: No Known Allergies (Unverified , 11/04/16) Reported Meds & Prescriptions Reported Meds & Active Scripts Active No Active Prescriptions or Reported Medications Review of Systems Except as stated in HPI: all other systems reviewed are Neg Physical Exam Narrative GENERAL: 21 yo M, WNWD, cooperative SKIN: Warm and dry. HEAD: Atraumatic. Normocephalic. EYES: Pupils equal and round. No scleral icterus. No injection or drainage. ENT: No nasal bleeding or discharge. Mucous membranes pink and moist. NECK: Trachea midline. No JVD. CARDIOVASCULAR: Regular rate and rhythm. RESPIRATORY: No accessory muscle use. Clear to auscultation. Breath sounds equal bilaterally. GASTROINTESTINAL: Abdomen soft, non-tender, nondistended. Hepatic and splenic margins not palpable. MUSCULOSKELETAL: Extremities without clubbing, cyanosis, or edema. No obvious deformities. NEUROLOGICAL: Awake and alert. No obvious cranial nerve deficits. Motor grossly within normal limits. Five out of 5 muscle strength in the arms and legs. Normal speech. PSYCHIATRIC: Denies hi/si. Cooperative on my exam. Data Data Last Documented VS Vital Signs Date Time Temp Pulse Resp B/P Pulse Ox O2 Delivery O2 Flow Rate FiO2 12/13/16 21:56 98.4 76 14 117/75 98 Room Air VS reviewed Orders Complete Blood Count With Diff (12/13/16 21:47) Comprehensive Metabolic Panel (12/13/16 21:47) Psych Screen (12/13/16 21:47) Drug Screen, Random Urine (12/13/16 21:47) Alcohol (Ethanol) (12/13/16 21:47) Salicylates (Aspirin) (12/13/16 21:47) Tylenol (Acetaminophen) (12/13/16 21:47) Labs Laboratory Tests Test 12/13/16 12/13/16 22:12 22:46 White Blood Count 6.3 TH/MM3 Red Blood Count 4.76 MIL/MM3 Hemoglobin 13.6 GM/DL Hematocrit 40.2 % Mean Corpuscular Volume 84.5 FL Mean Corpuscular Hemoglobin 28.6 PG Mean Corpuscular Hemoglobin 33.9 % Concent Red Cell Distribution Width 13.5 % Platelet Count 214 TH/MM3 Mean Platelet Volume 7.7 FL Neutrophils (%) (Auto) 46.4 % Lymphocytes (%) (Auto) 42.0 % Monocytes (%) (Auto) 9.5 % Eosinophils (%) (Auto) 1.4 % Basophils (%) (Auto) 0.7 % Neutrophils # (Auto) 2.9 TH/MM3 Lymphocytes # (Auto) 2.6 TH/MM3 Monocytes # (Auto) 0.6 TH/MM3 Eosinophils # (Auto) 0.1 TH/MM3 Basophils # (Auto) 0.0 TH/MM3 CBC Comment DIFF FINAL Differential Comment Sodium Level 140 MEQ/L Potassium Level 3.7 MEQ/L Chloride Level 102 MEQ/L Carbon Dioxide Level 28.4 MEQ/L Anion Gap 10 MEQ/L Blood Urea Nitrogen 23 MG/DL Creatinine 1.39 MG/DL Estimat Glomerular Filtration 79 ML/MIN Rate Random Glucose 77 MG/DL Calcium Level 9.6 MG/DL Total Bilirubin 2.3 MG/DL Aspartate Amino Transf 18 U/L (AST/SGOT) Alanine Aminotransferase 18 U/L (ALT/SGPT) Alkaline Phosphatase 58 U/L Total Protein 8.1 GM/DL Albumin 4.5 GM/DL Salicylates Level LESS THAN 1.7 MG/DL Acetaminophen Level LESS THAN 2.0 MCG/ML Ethyl Alcohol Level LESS THAN 3 MG/DL Urine Opiates Screen NEG Urine Barbiturates Screen NEG Urine Amphetamines Screen NEG Urine Benzodiazepines Screen NEG Urine Cocaine Screen NEG Urine Cannabinoids Screen POS MDM Medical Decision Making Medical Screen Exam Complete: Yes Emergency Medical Condition: Yes Medical Record Reviewed: Yes Differential Diagnosis Altered mental status/psychosis due to infection/environmental exposure/ metabolic abnormality, polypharmacy, alcohol abuse/intoxication, illicit or prescribed drug abuse, malingering/secondary gain, non-organic psychiatric disease Narrative Course The history of present illness, ROS, physical exam, review of records and medical workup performed for today's visit have reasonably safely excluded organic etiologies for the patient's presenting complaint. We will continue to monitor the patient carefully in the ER until time of evaluation by the psychiatry service. We are available for any additional medical assistance if needed during the patient's ER course. Disposition per discretion of psychiatry is appreciated. Mild numerical dehydration. CBC & BMP Diagram 12/13/16 22:12 Bili 2.7 (similar to priors) LFTs otherwise normal EtOH < 3 APAP < 2.0 UDrug: positive for cannabinoids Diagnosis Primary Impression: Altered mental status Qualified Code: R41.82 - Altered mental status, unspecified altered mental status type Additional Impression: Marijuana use Admitting Information Admitting Physician Requests: Observation Scripts No Active Prescriptions or Reported Meds Vasu Grimaldo MD December 13, 2016 22:09
[2016-12-13 22:28] LABS: AUTOMATED NEUTROPHIL # 2.9 TH/MM3 (1.8-7.7); BASOPHIL % 0.7 % (0.0-2.0); EOSINOPHIL # 0.1 TH/MM3 (0-0.4); EOSINOPHIL % 1.4 % (0.0-4.0); HEMATOCRIT 40.2 % (39.0-51.0); HEMO FLAGS DIFF FINAL; LYMPHOCYTE # 2.6 TH/MM3 (1.0-4.8); MEAN CELL VOLUME 84.5 FL (80.0-100.0); MEAN CORPUSCULAR HEMOGLOBIN 28.6 PG (27.0-34.0); MEAN CORPUSCULAR HGB CONC 33.9 % (32.0-36.0); MONO % 9.5 % (0.0-8.0); NEUT % 46.4 % (16.0-70.0); PLATELET COUNT 214 TH/MM3 (150-450); RED BLOOD COUNT 4.76 MIL/MM3 (4.50-5.90); RED CELL DISTRIBUTION WIDTH 13.5 % (11.6-17.2); WHITE BLOOD COUNT 6.3 TH/MM3 (4.0-11.0)
[2016-12-13 22:51] LABS: ANION GAP 10 MEQ/L (5-15)
[2016-12-13 22:54] LABS: ALKALINE PHOSPHATASE 58 U/L (45-117); ALT (GPT) 18 U/L (9-52); AST (GOT) 18 U/L (15-39); BICARBONATE 28.4 MEQ/L (21.0-32.0); BLOOD UREA NITROGEN 23 MG/DL (7-18); CHLORIDE 102 MEQ/L (98-107); GLOMERULAR FILTRATION RATE 79 ML/MIN (>89); POTASSIUM 3.7 MEQ/L (3.5-5.1); SODIUM (NA) 140 MEQ/L (136-145); TOTAL BILIRUBIN ADULT 2.3 MG/DL (0.2-1.0)
[2016-12-13 23:15] LABS: AMPHETAMINE, URINE NEG (NEG); BARBITURATES, URINE NEG (NEG); COCAINE, URINE NEG (NEG)
[2016-12-13 23:17] LABS: ACETAMINOPHEN LESS THAN 2.0 MCG/ML (10.0-30.0)
[2016-12-14 02:22] VITALS: BP 120/74; PULSE 78; RESP 19; O2SAT 97
[2016-12-14 06:36] VITALS: BP 111/55; PULSE 67; RESP 19; O2SAT 98
== END 2016-12-14 09:27 ==
LOC: NEPD 21:39 → NEPJ 12-14 09:27
DX: R41.82 Altered mental status, unspecified (principal); F12.90 Cannabis use, unspecified, uncomplicated
CPT/HCPCS: 80053; 80307; 85025; 99285